=== PATIENT | male | born 1955 | race Caucasian/White ===

== ENCOUNTER 2023-01-24 17:22 | Emergency (ER) | payer MEDICARE, OTHER ==
[~2023-01-24] VITALS: Ht 170.2 cm; Wt 97.8 kg
[2023-01-24 18:50] VITALS: BP 125/81
== END 2023-01-24 18:57 | disposition home or self-care (01) ==
LOC: EMS 17:23
DX: R41.82 Altered mental status, unspecified (principal); F10.129 Alcohol abuse with intoxication, unspecified
CPT/HCPCS: 99283; Z7502

== ENCOUNTER 2023-03-15 16:13 | Emergency (ER) | payer MEDICARE, OTHER ==
[~2023-03-15] VITALS: Ht 172.7 cm; Wt 71.4 kg
[2023-03-15 16:39] VITALS: TEMP 98.3
[2023-03-15 17:05] VITALS: BP 157/88; PULSE 81; RESP 16
== END 2023-03-15 18:04 | disposition home or self-care (01) ==
LOC: EMS 16:14
DX: F10.129 Alcohol abuse with intoxication, unspecified (principal); Z72.0 Tobacco use; Y90.9 Presence of alcohol in blood, level not specified
CPT/HCPCS: 99283; Z7502

== ENCOUNTER 2024-05-19 13:46 | Emergency (ER) | payer MEDICARE, OTHER ==
[~2024-05-19] VITALS: Ht 172.7 cm; Wt 90.9 kg
[2024-05-19 13:57] VITALS: TEMP 98.7
[2024-05-19 15:17] VITALS: BP 124/70; PULSE 88; RESP 12; O2SAT 95
== END 2024-05-19 15:18 | disposition home or self-care (01) ==
LOC: EMS 13:46
DX: T67.5XXA Heat exhaustion, unspecified, initial encounter (principal); E11.9 Type 2 diabetes mellitus without complications; X58.XXXA Exposure to other specified factors, initial encounter; Y93.89 Activity, other specified; Y92.89 Other specified places as the place of occurrence of the external cause; Y99.8 Other external cause status
CPT/HCPCS: 99283

== ENCOUNTER 2024-07-17 18:52 | Emergency (ER) | payer MEDICARE, OTHER | END 2024-07-17 20:26 | disposition left against medical advice (07) | LOC: EMS 18:56 | DX: Z53.21 Procedure and treatment not carried out due to patient leaving prior to being seen by health care provider (principal) ==

== ENCOUNTER 2024-08-09 19:54 | Emergency (ER) | payer MEDICARE, OTHER ==
[~2024-08-09] VITALS: Ht 172.7 cm; Wt 95.0 kg
[2024-08-09 19:56] VITALS: BP 168/90; PULSE 92; RESP 12; TEMP 98; O2SAT 100
== END 2024-08-09 20:34 | disposition left against medical advice (07) ==
LOC: EMS 19:54
DX: F10.129 Alcohol abuse with intoxication, unspecified (principal); Z53.21 Procedure and treatment not carried out due to patient leaving prior to being seen by health care provider

== ENCOUNTER 2025-01-21 14:22 | Emergency (ER) | payer MEDICARE, OTHER ==
[~2025-01-21] VITALS: Ht 175.3 cm; Wt 79.5 kg
[2025-01-21 14:39] VITALS: BP 127/75; PULSE 80; RESP 16; TEMP 98; O2SAT 99
== END 2025-01-21 14:55 | disposition left against medical advice (07) ==
LOC: EMS 14:22
DX: R53.1 Weakness (principal); E11.9 Type 2 diabetes mellitus without complications; Z72.89 Other problems related to lifestyle
CPT/HCPCS: 99283; Z7502

== ENCOUNTER 2025-02-27 13:19 | Emergency (ER) | payer MEDICARE, OTHER ==
[~2025-02-27] VITALS: Ht 172.7 cm; Wt 78.2 kg
[2025-02-27 13:38] VITALS: BP 112/66; PULSE 65; RESP 12; TEMP 98.2; O2SAT 94
[2025-02-27 14:00] LABS: GLUCOMETER DEV NAME(LOC) ERT.7; GLUCOSE,POINT OF CARE 310 MG/DL (70-110)
== END 2025-02-27 15:07 | disposition home or self-care (01) ==
LOC: EMS 13:28
DX: F10.129 Alcohol abuse with intoxication, unspecified (principal); E11.65 Type 2 diabetes mellitus with hyperglycemia; Y90.9 Presence of alcohol in blood, level not specified
CPT/HCPCS: 82962; 99283

== ENCOUNTER 2025-02-27 23:34 | Emergency (ER) | payer MEDICARE, OTHER ==
[~2025-02-27] VITALS: Ht 177.8 cm; Wt 86.4 kg
[2025-02-28 04:30] VITALS: BP 126/79; PULSE 72; RESP 18; TEMP 98; O2SAT 97
[2025-02-28 05:16] LABS: GLUCOMETER DEV NAME(LOC) ER.7; GLUCOSE,POINT OF CARE 253 MG/DL (70-110)
== END 2025-02-28 05:13 | disposition home or self-care (01) ==
LOC: EMS 02-28 00:51
DX: F10.129 Alcohol abuse with intoxication, unspecified (principal); E11.9 Type 2 diabetes mellitus without complications; Y90.9 Presence of alcohol in blood, level not specified
CPT/HCPCS: 82962; 99283

== ENCOUNTER 2025-08-04 13:44 | Emergency (ER) | payer MEDICARE, OTHER ==
[~2025-08-04] VITALS: Ht 172.7 cm; Wt 86.0 kg
[2025-08-04 14:11] VITALS: TEMP 98.9
[2025-08-04 15:11] LABS: PLATELET COUNT (AUTO) 193 K/uL (150-450); RED BLOOD CELL COUNT(AUTO) 4.10 MIL/uL (4.50-5.90); RED CELL DISTRIBUTION WIDTH 13.7 % (11.5-14.5); WHITE BLOOD COUNT (AUTO) 9.5 K/uL (4.5-11.0)
[2025-08-04 15:16] LABS: CALCIUM, TOTAL 8.9 mg/dL (8.8-10.5); CREATININE 0.87 mg/dL (0.60-1.30); GLOMERULAR FILTR. RATE CALC > 60 mL/min (>60); GLUCOSE,RANDOM 376 mg/dL (70-110); SODIUM SERUM 138 mmol/L (136-145); UREA NITROGEN, BLOOD 25 mg/dL (7-18)
[2025-08-04 15:25] LABS: ASPARTATE AMINOTRANSFERASE 16.0 U/L (15-37); TOTAL PROTEIN, SERUM 6.6 g/dL (6.4-8.2)
[2025-08-04 15:32] LABS: TROPONIN I-HIGH SENSITIVITY 7 ng/L (<76)
[2025-08-04] MEDS: SODIUM CHLORIDE 0.9% 1,000 ML IV ONE (15:32)
[2025-08-04 15:41] VITALS: BP 180/89; PULSE 80; RESP 11; O2SAT 95
[2025-08-04 15:55] LABS: APPEARANCE,URINE CLEAR (CLEAR); GLUCOSE, URINE (UA) >=1000 mg/dL (NEGATIVE); LEUKOCYTE ESTERASE ,URINE NEGATIVE (NEGATIVE); NITRATE,URINE NEGATIVE (NEGATIVE); OCCULT BLOOD,URINE NEGATIVE (NEGATIVE); SPECIFIC GRAVITIY, URINE 1.031 (1.003-1.030)
== END 2025-08-04 16:09 | disposition left against medical advice (07) ==
LOC: EMS 13:44
DX: E11.65 Type 2 diabetes mellitus with hyperglycemia (principal); R53.1 Weakness; F10.20 Alcohol dependence, uncomplicated; R06.02 Shortness of breath; Y90.9 Presence of alcohol in blood, level not specified
CPT/HCPCS: 99285; 96360; 71045; 80048; 80076; 81001; 82962; 83880; 84484; 85025; 36415; 93005; J7030